=== PATIENT | female | born 1985 | race African-American/Black ===

== ENCOUNTER 2016-12-13 20:37 | Emergency (ER) | payer MEDICAID ==
[2014-07-17 08:12] VITALS: BMI 45.7
[~2016-12-13 20:37] MED LIST: ADIPEX-P37.5 MG PO; TOPAMAX50 MG PO; VISTARIL50 MG PO; ZOVIRAX200 MG PO
[2016-12-13 21:55] LABS: HCG URINE NEGATIVE (NEGATIVE)
== END 2016-12-13 22:05 | disposition home or self-care (01) ==
LOC: D.ER 20:37
PROVIDERS: Physician Assistant Medical
DX: R10.9 Unspecified abdominal pain (principal); R19.7 Diarrhea, unspecified

== ENCOUNTER 2017-06-10 12:09 | Emergency (ER) | payer BC ==
[2014-07-17 08:12] VITALS: BMI 45.7
[2017-06-10 13:19] LABS: APPEARANCE HAZY (CLEAR); BILIRUBIN NEGATIVE (NEGATIVE); COLOR DK YELLOW (YELLOW); GLUCOSE NEGATIVE (NEGATIVE); KETONE NEGATIVE (NEGATIVE); LEUKOCYTE ESTERASE TRACE (NEGATIVE); NITRITE POSITIVE (NEGATIVE); PROTEIN NEGATIVE (NEGATIVE); SPECIFIC GRAVITY 1.005 (1.005-1.020); UROBILINOGEN NORMAL (NORMAL)
[2017-06-10 13:26] LABS: BACTERIA FEW /hpf (NONE SEEN); EPITHELIAL CELLS 0-5 /hpf (0-5)
== END 2017-06-10 17:02 | disposition home or self-care (01) ==
LOC: D.ER 12:09
PROVIDERS: Emergency Medicine
DX: N39.0 Urinary tract infection, site not specified (principal); R10.9 Unspecified abdominal pain; F17.200 Nicotine dependence, unspecified, uncomplicated

== ENCOUNTER 2017-06-26 10:50 | Emergency (ER) | payer MEDICAID ==
[2014-07-17 08:12] VITALS: BMI 45.7
[2017-06-26 11:51] LABS: APPEARANCE HAZY (CLEAR); BACTERIA MODERATE /hpf (NONE SEEN); BILIRUBIN NEGATIVE (NEGATIVE); COLOR YELLOW (YELLOW); GLUCOSE NEGATIVE (NEGATIVE); KETONE NEGATIVE (NEGATIVE); LEUKOCYTE ESTERASE 1+ (NEGATIVE); MUCUS <1+ /lpf (NONE SEEN); NITRITE NEGATIVE (NEGATIVE); PROTEIN NEGATIVE (NEGATIVE); SPECIFIC GRAVITY 1.015 (1.005-1.020); UROBILINOGEN NORMAL (NORMAL)
== END 2017-06-26 12:58 | disposition home or self-care (01) ==
LOC: D.ER 10:50
PROVIDERS: Emergency Medicine
DX: N39.0 Urinary tract infection, site not specified (principal); R30.0 Dysuria; A59.9 Trichomoniasis, unspecified; F17.200 Nicotine dependence, unspecified, uncomplicated

== ENCOUNTER 2017-09-16 11:27 | Emergency (ER) | payer MEDICAID ==
[2014-07-17 08:12] VITALS: BMI 45.7
== END 2017-09-16 12:07 | disposition home or self-care (01) ==
LOC: D.ER 11:27
DX: N60.02 Solitary cyst of left breast (principal)

== ENCOUNTER 2017-11-05 13:24 | Emergency (ER) | payer MEDICAID ==
[2014-07-17 08:12] VITALS: BMI 45.7
[2017-11-05 15:29] LABS: APPEARANCE HAZY (CLEAR); BILIRUBIN NEGATIVE (NEGATIVE); COLOR YELLOW (YELLOW); GLUCOSE NEGATIVE (NEGATIVE); KETONE NEGATIVE (NEGATIVE); NITRITE POSITIVE (NEGATIVE); PROTEIN NEGATIVE (NEGATIVE); UROBILINOGEN NORMAL (NORMAL)
[2017-11-05 15:31] LABS: WHITE CELLS - URINE 25-50 /hpf (0-5)
[2017-11-05 15:36] LABS: BACTERIA FEW /hpf (NONE SEEN); RED CELLS - URINE 0-5 /hpf (0-5)
== END 2017-11-05 16:27 | disposition home or self-care (01) ==
LOC: D.ER 13:24
PROVIDERS: Family Medicine
DX: N39.0 Urinary tract infection, site not specified (principal)

== ENCOUNTER 2017-11-20 16:50 | Emergency (ER) | payer MEDICAID ==
[2014-07-17 08:12] VITALS: BMI 45.7
== END 2017-11-20 20:34 | disposition home or self-care (01) ==
LOC: D.ER 16:50
DX: L03.317 Cellulitis of buttock (principal); F17.200 Nicotine dependence, unspecified, uncomplicated

== ENCOUNTER 2017-11-29 08:01 | Emergency (ER) | payer MEDICAID ==
[2014-07-17 08:12] VITALS: BMI 45.7
[2017-11-29 09:04] LABS: APPEARANCE CLEAR (CLEAR); BACTERIA FEW /hpf (NONE SEEN); BILIRUBIN NEGATIVE (NEGATIVE); COLOR YELLOW (YELLOW); EPITHELIAL CELLS 0-5 /hpf (0-5); GLUCOSE NEGATIVE (NEGATIVE); KETONE NEGATIVE (NEGATIVE); MUCUS <1+ /lpf (NONE SEEN); NITRITE NEGATIVE (NEGATIVE); PROTEIN NEGATIVE (NEGATIVE); RED CELLS - URINE OCC /hpf (0-5); SPECIFIC GRAVITY 1.015 (1.005-1.020); UROBILINOGEN NORMAL (NORMAL); WHITE CELLS - URINE 0-5 /hpf (0-5)
== END 2017-11-29 09:06 | disposition home or self-care (01) ==
LOC: D.ER 08:01
PROVIDERS: Emergency Medicine
DX: R10.2 Pelvic and perineal pain (principal); F17.200 Nicotine dependence, unspecified, uncomplicated

== ENCOUNTER 2019-10-03 11:51 | Emergency (ER) | payer SELFPAY ==
[~2019-10-03] VITALS: Ht 170.2 cm; Wt 115.9 kg
[2019-10-03 12:04] VITALS: Ht 170.2 cm; Wt 115.9 kg
[2019-10-03] MEDS ORDERED: SMZ-TMP DS 800-1 TAB PO (14:09)
[2019-10-03] MEDS ORDERED: KEFLEX500 MG PO (14:09)
[2019-10-03] MEDS ORDERED: POLYSPORIN OINT15 G1 TOPICAL (14:09)
[2019-10-03 14:13] VITALS: BP 118/73
== END 2019-10-03 14:13 | disposition home or self-care (01) ==
LOC: D.ER 11:51
DX: L73.9 Follicular disorder, unspecified (principal)